=== PATIENT | female | born 1970 | race Caucasian/White ===

== ENCOUNTER 2016-09-06 11:05 | Emergency (ER) | payer OTHER ==
[2016-09-06] MEDS ORDERED: ANEXSIA, NORCO 7.5MG/325MG TABLET(HYDROCODONE/APAP) As Ordered ONE (12:13)
[2016-09-06] MEDS ORDERED: NORCO, ANEXSIA 5/325MG TABLET (HYDROcodone/ACETAMINOPHEN) As Ordered ONE (12:15)
--- NOTE | 2016-09-06 12:34 | REP ---
Clinical: Fall . Technique: Internal rotation, external rotation, and Y view right shoulder. Findings: No acute fracture or dislocation. The acromioclavicular and glenohumeral joints are intact. No periarticular calcifications or significant degenerative changes are appreciated. Sub acromial space is normal. Surrounding soft tissues are unremarkable. Impression: No acute fracture or dislocation. Signed by Duong Bruno MD 09/06/2016 12:25 P
--- NOTE | 2016-09-06 12:35 | REP ---
Clinical: Trauma/fall. Technique: AP, lateral, bilateral oblique and sunrise views left knee. Findings: The osseous structures and joint spaces are intact and normal. There is no evidence for acute fracture or dislocation. No joint effusion is appreciated. Surrounding soft tissues are unremarkable. No subcutaneous emphysema or radiodense foreign body. Impression: No acute fracture or dislocation. Signed by Duong Bruno MD 09/06/2016 12:27 P
--- NOTE | 2016-09-06 12:41 | REP ---
Clinical: Trauma. Fall. Technique: AP, lateral, bilateral oblique views of the right hand. Findings: Irregularity involving the fifth digit distal phalanx suggests old injury. However, subtle acute injury cannot be excluded. The remainder of the examination appears normal for age and no further acute fracture or dislocation is identified or suggested. No subcutaneous emphysema. No foreign body. Impression: Likely old injury involving the fifth distal phalanx. No further acute fracture or dislocation identified or suggested. Signed by Duong Bruno MD 09/06/2016 12:32 P
[2016-09-06] MEDS ORDERED: diphenhydrAMINE INJ 50MG/ML VIAL (J1200) As Ordered ONE (13:29)
[2016-09-06] MEDS ORDERED: METOCLOPRAMIDE INJ 10MG/2ML VIAL (J2765) As Ordered ONE (13:29)
[2016-09-06] MEDS ORDERED: KETOROLAC 30 MG/ML VIAL (J1885) As Ordered ONE (13:29)
--- NOTE | 2016-09-06 15:09 | REP ---
Clinical: Headache . Comparison: 06/30/2015 . Findings: The ventricles, sulci, and cisterns are normal in position and appearance. Becker-white differentiation is maintained. No acute intracranial hemorrhage, mass/mass effect, pathology or trauma/injury. No evidence for acute infarction. No extra-axial fluid collection. Calvarium is intact. Paranasal sinuses and mastoid air cells are clear. Impression: Normal noncontrast head CT. No evidence for acute intracranial pathology or trauma/injury. Signed by Duong Bruno MD 09/06/2016 03:00 P
--- NOTE | 2016-09-06 15:48 | EDDOCDS ---
Physician Documentation [facility] Name: Wendi Go Age: 45 yrs Sex: Female : 1970 Arrival Date: 09/06/2016 Time: 11:05 Bed TR8 Private MD: [facility] [place] [facility] [place] Disposition: 09/06/16 15:11 Discharged to Home/Self Care. Impression: Fall (on) (from) other stairs and steps, Headache. - Condition is Stable. - Prescriptions for Naprosyn 500 mg Oral Tablet - take 1 tablet by ORAL route 2 times per day take with food; 20 tablet. Percocet 5- 325 mg Oral Tablet - take 1 tablet by ORAL route every 6 hours As needed MDD: 4 tabs; 4 tablet. - Medication Reconciliation, Local Pharmacy Hours form. - Follow up: [facility] [place] [facility]; When: 1 week; Reason: Recheck today's complaints. - Problem is new. - Symptoms have improved. - Notes: You were evaluated in the emergency department for a mechanical fall and headache. The x-rays obtained on your right shoulder, right hand, and left knee reported no acute fractures. The CT obtained of your head reported no acute pathology. You were given anti-inflammatories and pain medication while in the ED. At time of discharge you were prescribed an anti-inflammatory and pain medication. Please follow-up with the [facility] in 1 week. Historical: - Allergies: Bees (Swelling); PENICILLINS (Unknown); - Home Meds: 1. Ambien CR 12.5 mg Oral TbMP 1 tab once daily 2. Fioricet Oral as needed h/a 3. Lopressor 50 mg Oral tab 1 tab 2 times per day 4. Zyrtec 10 mg Oral tab 1 tab once daily - PMHx: Anxiety; Hypertension; - PSHx: Hysterectomy; Breast Reduction; Adenoidectomy; Tonsillectomy; wisdom tooth extraction; - Social history: Smoking status: Patient states was never smoker of tobacco. No barriers to communication noted, The patient speaks fluent Divehi, Speaks appropriately for age. - Family history: Not pertinent. - : The pt / caregiver states he / she is not on anticoagulants. Home medication list is obtained from the patient. - Exposure Risk Screening:: None identified. Vital Signs: 09/06 11:07 BP 165 / 109; Pulse 76; Resp 18; Temp 96.0; Pulse Ox 98% ; Weight 84.82 kg / 187 lbs; elp Height 5 ft. 5 in. (165.10 cm); Pain 7/10; 13:05 BP 145 / 115; Pulse 69; Resp 18; Pulse Ox 96% ; Pain 6/10; hs1 15:46 BP 145 / 92; Pulse 67; Resp 18; Temp 98(T); Pulse Ox 99% on R/A; Pain 2/10; rs3 11:07 Body Mass Index 31.12 (84.82 kg, 165.10 cm) elp MDM: 12:05 HYDROcodone-acetaminophen 5 mg-325 mg 1 tabs PO once ordered. jo4 12:06 Hand, Complete Ordered. EDMS 12:06 Knee, Complete Ordered. EDMS 12:06 Shoulder, Complete Ordered. EDMS 12:49 ED course: 45 yo female presents with mild mechanical fall struck head but no LOC no sd1 N/V no neuro complaints no neck pain c/o pain right shoulder right hand left knee no syncope pt slipped - mechanical fall exam tender right shoulder left knee right hand no deformity neuro vasc intact evaluate injuries. 13:10 Hand, Complete Reviewed. jo4 13:10 Knee, Complete Reviewed. jo4 13:10 Shoulder, Complete Reviewed. jo4 13:20 ketorolac 60 mg IM once ordered. jo4 13:20 diphenhydrAMINE 25 mg IM once ordered. jo4 13:20 Metoclopramide 10 mg IM once ordered. jo4 13:48 [facility] Payment Agreement was scanned into [employer] and attached to record. jp5 13:48 Financial registration complete. jp5 14:51 CT Head Without Contrast Ordered. EDMS Administered Medications: 12:25 Drug: HYDROcodone-acetaminophen 1 tabs [hydrocodone 5 mg-acetaminophen 325 mg tablet (1 hs1 tabs)] Route: PO; 13:05 Follow up: BP 145 / 115; Pulse 69 bpm; Resp 18 bpm; Pulse Ox 96% ; Pain 6/10 Adult; hs1 Response: Pain is decreased 13:33 Drug: Metoclopramide 10 mg [metoclopramide 5 mg/mL injection solution (2 mL)] Route: pml IM; Site: left gluteus; 13:34 Drug: ketorolac 60 mg [ketorolac 30 mg/mL (1 mL) injection solution (2 mL)] Route: IM; pml Site: right gluteus; 13:34 Drug: diphenhydrAMINE 25 mg [diphenhydramine 50 mg/mL injection solution (0.5 mL)] pml Route: IM; Site: left gluteus; Signatures: Dispatcher [employer] Rebecca Farias MD MD sd1 Jay Javier RN RN mlb1 Nusrat Chapman RN RN rs3 Romario Fuentes jp5 Cori Toro DO DO jo4 Dafne Bray RN hs1 Caro Puentes RN pml The chart was reviewed and I authenticate all verbal orders and agree with the evaluation and treatment provided.Attachments: 13:48 [facility] Payment Agreement jp5 MTDD
--- NOTE | 2016-09-06 15:48 | EDDOCDS ---
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 Adult Sepsis Screening: The patient does not have new or worsening altered mentation. Patient's respiratory rate is less than 22. Systolic blood pressure is greater than 100. Patient has a qSOFA score of 0- Negative Sepsis Screen. Suicide/Homicide risk assessment- the patient denies having any suicidal and/or homicidal ideations and does not present with any other emotional, behavioral or mental health complaints. Status: Patient is not a director of community services or dependent. Transition of care: patient was not received from another setting of care. 11:12 Acuity: YAMILET Level 4 mlb1 11:12 Method Of Arrival: Walkin/Carried/Asstd mlb1 Triage Assessment: 11:15 General: Appears in no apparent distress, Behavior is appropriate for age, cooperative. mlb1 Pain: Location: right shoulder, right hand left knee head Pain currently is 7 out of 10 on a pain scale. Pt Declines HIV testing. Neurological: Level of Consciousness is awake, alert, Oriented to person, place, time. Historical: - Allergies: Bees (Swelling); PENICILLINS (Unknown); - Home Meds: 1. Ambien CR 12.5 mg Oral TbMP 1 tab once daily 2. Fioricet Oral as needed h/a 3. Lopressor 50 mg Oral tab 1 tab 2 times per day 4. Zyrtec 10 mg Oral tab 1 tab once daily - PMHx: Anxiety; Hypertension; - PSHx: Hysterectomy; Breast Reduction; Adenoidectomy; Tonsillectomy; wisdom tooth extraction; - Social history: Smoking status: Patient states was never smoker of tobacco. No barriers to communication noted, The patient speaks fluent Kosovan, Speaks appropriately for age. - Family history: Not pertinent. - : The pt / caregiver states he / she is not on anticoagulants. Home medication list is obtained from the patient. - Exposure Risk Screening:: None identified. Screenin:46 Screening information is obtained from the patient. Fall risk: No risks identified. hs1 Assistance ADL's: requires no assistance with activities of daily living. Abuse/DV Screen: The patient / caregiver reports he/she is: not in a situation that causes fear, pain or injury. Nutritional screening: No deficits noted. Advance Directives: There is no active DNR order. home support is adequate. Assessment: 11:45 General: Appears in no apparent distress, Behavior is appropriate for age, cooperative. hs1 Pain: Location: right hand, right arm and left knee Pain currently is 7 out of 10 on a pain scale. Quality of pain is described as aching. Cardiovascular: No deficits noted. Respiratory: No deficits noted. Derm: Bruising that is bright red, on right hand. Musculoskeletal: Range of motion limited in right shoulder, MCP of right index finger, MCP of right middle finger, MCP of right ring finger and MCP of right little finger. 12:35 Reassessment: Patient appears in no apparent distress at this time. Patient states hs1 symptoms have not improved. Pt states headache also. Does remember hitting head without LOC. Patient also reports history of high blood pressure. Will reassess after medication. . 13:08 Reassessment: Patient appears in no apparent distress at this time. Patient states pain hs1 mildly decreased however headache still bothering her. Patient photophobic. . 13:34 General: Appears in no apparent distress, Behavior is appropriate for age, cooperative. pml Pain: Location: headache Pain currently is 8 out of 10 on a pain scale. Neurological: Level of Consciousness is awake, alert, Oriented to person, place, time. Cardiovascular: Capillary refill < 3 seconds. Derm: Skin is pink, warm & dry. Vital Signs: 11:07 BP 165 / 109; Pulse 76; Resp 18; Temp 96.0; Pulse Ox 98% ; Weight 84.82 kg; Height 5 elp ft. 5 in. (165.10 cm); Pain 7/10; 13:05 BP 145 / 115; Pulse 69; Resp 18; Pulse Ox 96% ; Pain 6/10; hs1 15:46 BP 145 / 92; Pulse 67; Resp 18; Temp 98(T); Pulse Ox 99% on R/A; Pain 2/10; rs3 11:07 Body Mass Index 31.12 (84.82 kg, 165.10 cm) [facility] Vitals: 11:07 Log In Time: September 06, 2016 at 10:05. p ED Course: 11:06 Patient visited by Melinda Ontiveros PCA. elp 11:06 Patient moved to Waiting elp 11:07 DYLAN Hunt is Private Physician. elp 11:07 Patient visited by Melinda Ontiveros PCA. elp 11:07 Patient moved to Pre RCE elp 11:12 Patient visited by Jay Javier, NARCISO. mlb1 11:14 Triage Initiated mlb1 11:16 Patient visited by Jay Javier, NARCISO. mlb1 11:20 Dafne Bray, NARCISO is Primary Nurse. sd1 11:20 [facility] jo4 11:20 Rebecca Millan MD is Attending Physician. jo4 11:20 Patient moved to 14 sd1 11:25 Patient visited by Rebecca Millan MD. sd1 11:58 Patient visited by Dafne Bray RN. hs1 12:55 Shoulder, Complete Returned. EDMS 12:55 Knee, Complete Returned. EDMS 12:55 Hand, Complete Returned. EDMS 13:03 Patient visited by Dafne Bray RN. hs1 13:35 Patient visited by Caro Puentes,NARCISO. pml 13:48 [facility] Payment Agreement was scanned into [employer] and attached to record. jp5 14:47 DYLAN Hunt is Referral Physician. jo4 15:11 [facility] is Referral Physician. jo4 15:46 Patient moved to TR8 rs3 15:47 The patient / caregiver is instructed regarding the plan of care and ED course. rs3 15:47 No IV's were initiated during this patient's visit. No procedures done that require rs3 assistance. Administered Medications: 12:25 Drug: HYDROcodone-acetaminophen 1 tabs [hydrocodone 5 mg-acetaminophen 325 mg tablet (1 hs1 tabs)] Route: PO; 13:05 Follow up: BP 145 / 115; Pulse 69 bpm; Resp 18 bpm; Pulse Ox 96% ; Pain 6/10 Adult; hs1 Response: Pain is decreased 13:33 Drug: Metoclopramide 10 mg [metoclopramide 5 mg/mL injection solution (2 mL)] Route: pml IM; Site: left gluteus; 13:34 Drug: ketorolac 60 mg [ketorolac 30 mg/mL (1 mL) injection solution (2 mL)] Route: IM; pml Site: right gluteus; 13:34 Drug: diphenhydrAMINE 25 mg [diphenhydramine 50 mg/mL injection solution (0.5 mL)] pml Route: IM; Site: left gluteus; Order Results: Radiology Order: Hand, Complete Test: Hand, Complete REASON FOR EXAMINATION: Mechanical fall; Clinical: Trauma. Fall.; ; Technique: AP, lateral, bilateral oblique views of the right hand.; ; Findings:; Irregularity involving the fifth digit distal phalanx suggests old injury.; However, subtle acute injury cannot be excluded. The remainder of the; examination appears normal for age and no further acute fracture or dislocation; is identified or suggested. No subcutaneous emphysema. No foreign body.; ; Impression:; Likely old injury involving the fifth distal phalanx.; No further acute fracture or dislocation identified or suggested.; ; ; Signed by; Duong Bruno MD 09/06/2016 12:32 P; Radiology Order: Knee, Complete Test: Knee, Complete REASON FOR EXAMINATION: Mechanical fall; Clinical: Trauma/fall.; ; Technique: AP, lateral, bilateral oblique and sunrise views left knee.; ; Findings: The osseous structures and joint spaces are intact and normal. There; is no evidence for acute fracture or dislocation. No joint effusion is; appreciated. Surrounding soft tissues are unremarkable. No subcutaneous; emphysema or radiodense foreign body.; ; Impression:; No acute fracture or dislocation.; ; ; Signed by; Duong Bruno MD 09/06/2016 12:27 P; Radiology Order: Shoulder, Complete Test: Shoulder, Complete REASON FOR EXAMINATION: Mechanical fall; Clinical: Fall .; ; Technique: Internal rotation, external rotation, and Y view right shoulder.; ; Findings:; No acute fracture or dislocation. The acromioclavicular and glenohumeral joints; are intact. No periarticular calcifications or significant degenerative changes; are appreciated. Sub acromial space is normal. Surrounding soft tissues are; unremarkable.; ; Impression:; No acute fracture or dislocation.; ; ; Signed by; Duong Bruno MD 09/06/2016 12:25 P; Outcome: 14:48 Discharge ordered by Provider. jo4 15:11 Discharge ordered by Provider. jo4 15:46 Discharge Assessment: patient administered narcotics - no. The following High Risk rs3 Discharge criteria are identified: None. Discharged to home with family. Condition: stable. Discharge instructions given to patient, Instructed on discharge instructions, follow up and referral plans. medication usage, Demonstrated understanding of instructions, medications, Pt was receptive of discharge instructions/ teaching. Prescriptions given X 2. CT Study completed. Property :Personal belongings accompany Pt. 15:47 Patient left the ED. rs3 Signatures: Dispatcher [employer] EDMS Rebecca Millan MD MD sd1 Jay Javier RN RN mlb1 Nusrat Chapman RN RN rs3 Dafne Bray RN RN hs1 Caro PuentesRN RN Melinda Valentin, [employer] Romario Garay jp5 Cori Toro DO DO jo4 ALIREZA
--- NOTE | 2016-09-08 16:48 | EDDOCDS ---
Nurse's Notes [facility] Name: Wendi Go Age: 45 yrs Sex: Female : 1970 Arrival Date: 09/06/2016 Time: 11:05 Bed TR8 Private MD: NU Hunt Diagnosis: Fall (on) (from) other stairs and steps;Headache Presentation: 09/06 11:12 Presenting complaint: Patient states: Fell down 5 steps injuring right shoulder, hand, mlb1 fingers left knee and hit head 2 hours [employer]. Adult Sepsis Screening: The patient does not have new or worsening altered mentation. Patient's respiratory rate is less than 22. Systolic blood pressure is greater than 100. Patient has a qSOFA score of 0- Negative Sepsis Screen. Suicide/Homicide risk assessment- the patient denies having any suicidal and/or homicidal ideations and does not present with any other emotional, behavioral or mental health complaints. Status: Patient is not a financial services counselor or dependent. Transition of care: patient was not received from another setting of care. 11:12 Acuity: YAMILET Level 4 mlb1 11:12 Method Of Arrival: Walkin/Carried/Asstd mlb1 Triage Assessment: 11:15 General: Appears in no apparent distress, Behavior is appropriate for age, cooperative. mlb1 Pain: Location: right shoulder, right hand left knee head Pain currently is 7 out of 10 on a pain scale. Pt Declines HIV testing. Neurological: Level of Consciousness is awake, alert, Oriented to person, place, time. Historical: - Allergies: Bees (Swelling); PENICILLINS (Unknown); - Home Meds: 1. Ambien CR 12.5 mg Oral TbMP 1 tab once daily 2. Fioricet Oral as needed h/a 3. Lopressor 50 mg Oral tab 1 tab 2 times per day 4. Zyrtec 10 mg Oral tab 1 tab once daily - PMHx: Anxiety; Hypertension; - PSHx: Hysterectomy; Breast Reduction; Adenoidectomy; Tonsillectomy; wisdom tooth extraction; - Social history: Smoking status: Patient states was never smoker of tobacco. No barriers to communication noted, The patient speaks fluent Somali, Speaks appropriately for age. - Family history: Not pertinent. - : The pt / caregiver states he / she is not on anticoagulants. Home medication list is obtained from the patient. - Exposure Risk Screening:: None identified. Screenin:46 Screening information is obtained from the patient. Fall risk: No risks identified. hs1 Assistance ADL's: requires no assistance with activities of daily living. Abuse/DV Screen: The patient / caregiver reports he/she is: not in a situation that causes fear, pain or injury. Nutritional screening: No deficits noted. Advance Directives: There is no active DNR order. home support is adequate. Assessment: 11:45 General: Appears in no apparent distress, Behavior is appropriate for age, cooperative. hs1 Pain: Location: right hand, right arm and left knee Pain currently is 7 out of 10 on a pain scale. Quality of pain is described as aching. Cardiovascular: No deficits noted. Respiratory: No deficits noted. Derm: Bruising that is bright red, on right hand. Musculoskeletal: Range of motion limited in right shoulder, MCP of right index finger, MCP of right middle finger, MCP of right ring finger and MCP of right little finger. 12:35 Reassessment: Patient appears in no apparent distress at this time. Patient states hs1 symptoms have not improved. Pt states headache also. Does remember hitting head without LOC. Patient also reports history of high blood pressure. Will reassess after medication. . 13:08 Reassessment: Patient appears in no apparent distress at this time. Patient states pain hs1 mildly decreased however headache still bothering her. Patient photophobic. . 13:34 General: Appears in no apparent distress, Behavior is appropriate for age, cooperative. pml Pain: Location: headache Pain currently is 8 out of 10 on a pain scale. Neurological: Level of Consciousness is awake, alert, Oriented to person, place, time. Cardiovascular: Capillary refill < 3 seconds. Derm: Skin is pink, warm & dry. Vital Signs: 11:07 BP 165 / 109; Pulse 76; Resp 18; Temp 96.0; Pulse Ox 98% ; Weight 84.82 kg; Height 5 elp ft. 5 in. (165.10 cm); Pain 7/10; 13:05 BP 145 / 115; Pulse 69; Resp 18; Pulse Ox 96% ; Pain 6/10; hs1 15:46 BP 145 / 92; Pulse 67; Resp 18; Temp 98(T); Pulse Ox 99% on R/A; Pain 2/10; rs3 11:07 Body Mass Index 31.12 (84.82 kg, 165.10 cm) [facility] Vitals: 11:07 Log In Time: September 06, 2016 at 10:05. [facility] ED Course: 11:06 Patient visited by Melinda Ontiveros PCA. elp 11:06 Patient moved to Waiting elp 11:07 DYLAN Hunt is Private Physician. elp 11:07 Patient visited by Melinda Ontiveros PCA. elp 11:07 Patient moved to Pre RCE elp 11:12 Patient visited by Jay Javier, RN. mlb1 11:14 Triage Initiated mlb1 11:16 Patient visited by Jay Javier, NARCISO. mlb1 11:20 Dafne Bray, NARCISO is Primary Nurse. sd1 11:20 [facility] DO [facility]. jo4 11:20 Rebecca Millan MD is Attending Physician. jo4 11:20 Patient moved to 14 sd1 11:25 Patient visited by Rebecca Millan MD. sd1 11:58 Patient visited by Dafne Bray RN. hs1 12:55 Shoulder, Complete Returned. EDMS 12:55 Knee, Complete Returned. EDMS 12:55 Hand, Complete Returned. EDMS 13:03 Patient visited by Dafne Bray RN. hs1 13:35 Patient visited by Caro Puentes,NARCISO. pml 13:48 [facility] Payment Agreement was scanned into [employer] and attached to record. jp5 14:47 NU Hunt is Referral Physician. jo4 15:11 [facility] [place] [place] is Referral Physician. jo4 15:46 Patient moved to TR8 rs3 15:47 The patient / caregiver is instructed regarding the plan of care and ED course. rs3 15:47 No IV's were initiated during this patient's visit. No procedures done that require rs3 assistance. 15:53 CT Head Without Contrast Returned. EDMS 20:31 T-Sheet-- Draft Copy was scanned into [employer] and attached to record. klr Administered Medications: 12:25 Drug: HYDROcodone-acetaminophen 1 tabs [hydrocodone 5 mg-acetaminophen 325 mg tablet (1 hs1 tabs)] Route: PO; 13:05 Follow up: BP 145 / 115; Pulse 69 bpm; Resp 18 bpm; Pulse Ox 96% ; Pain 6/10 Adult; hs1 Response: Pain is decreased 13:33 Drug: Metoclopramide 10 mg [metoclopramide 5 mg/mL injection solution (2 mL)] Route: pml IM; Site: left gluteus; 13:34 Drug: ketorolac 60 mg [ketorolac 30 mg/mL (1 mL) injection solution (2 mL)] Route: IM; pml Site: right gluteus; 13:34 Drug: diphenhydrAMINE 25 mg [diphenhydramine 50 mg/mL injection solution (0.5 mL)] pml Route: IM; Site: left gluteus; Order Results: Radiology Order: Hand, Complete Test: Hand, Complete REASON FOR EXAMINATION: Mechanical fall; Clinical: Trauma. Fall.; ; Technique: AP, lateral, bilateral oblique views of the right hand.; ; Findings:; Irregularity involving the fifth digit distal phalanx suggests old injury.; However, subtle acute injury cannot be excluded. The remainder of the; examination appears normal for age and no further acute fracture or dislocation; is identified or suggested. No subcutaneous emphysema. No foreign body.; ; Impression:; Likely old injury involving the fifth distal phalanx.; No further acute fracture or dislocation identified or suggested.; ; ; Signed by; Duong Bruno MD 09/06/2016 12:32 P; Radiology Order: Knee, Complete Test: Knee, Complete REASON FOR EXAMINATION: Mechanical fall; Clinical: Trauma/fall.; ; Technique: AP, lateral, bilateral oblique and sunrise views left knee.; ; Findings: The osseous structures and joint spaces are intact and normal. There; is no evidence for acute fracture or dislocation. No joint effusion is; appreciated. Surrounding soft tissues are unremarkable. No subcutaneous; emphysema or radiodense foreign body.; ; Impression:; No acute fracture or dislocation.; ; ; Signed by; Duong Bruno MD 09/06/2016 12:27 P; Radiology Order: Shoulder, Complete Test: Shoulder, Complete REASON FOR EXAMINATION: Mechanical fall; Clinical: Fall .; ; Technique: Internal rotation, external rotation, and Y view right shoulder.; ; Findings:; No acute fracture or dislocation. The acromioclavicular and glenohumeral joints; are intact. No periarticular calcifications or significant degenerative changes; are appreciated. Sub acromial space is normal. Surrounding soft tissues are; unremarkable.; ; Impression:; No acute fracture or dislocation.; ; ; Signed by; Duong Bruno MD 09/06/2016 12:25 P; Radiology Order: CT Head Without Contrast Test: CT Head Without Contrast REASON FOR EXAMINATION: Headache; Clinical: Headache .; ; Comparison: 06/30/2015 .; ; Findings:; The ventricles, sulci, and cisterns are normal in position and appearance.; Becker-white differentiation is maintained. No acute intracranial hemorrhage,; mass/mass effect, pathology or trauma/injury. No evidence for acute infarction.; No extra-axial fluid collection. Calvarium is intact. Paranasal sinuses and; mastoid air cells are clear.; ; Impression:; Normal noncontrast head CT.; No evidence for acute intracranial pathology or trauma/injury.; ; ; Signed by; Duong Bruno MD 09/06/2016 03:00 P; Outcome: 14:48 Discharge ordered by Provider. jo4 15:11 Discharge ordered by Provider. jo4 15:46 Discharge Assessment: patient administered narcotics - no. The following High Risk rs3 Discharge criteria are identified: None. Discharged to home with family. Condition: stable. Discharge instructions given to patient, Instructed on discharge instructions, follow up and referral plans. medication usage, Demonstrated understanding of instructions, medications, Pt was receptive of discharge instructions/ teaching. Prescriptions given X 2. CT Study completed. Property :Personal belongings accompany Pt. 15:47 Patient left the ED. rs3 Signatures: Dispatcher [employer] EDMS Rebecca Millan MD MD sd1 Jay Javier RN RN mlb1 Nusrat ChapmanRN RN rs3 Dafne Bray RN RN hs1 Caro Puentes RN RN Melinda Valentin, [employer] Romario Garay Jane, DO DO jo4 Haylee Cha Chart Complete MTDD
--- NOTE | 2016-09-08 16:48 | EDDOCDS ---
Physician Documentation [facility] Name: Wendi Go Age: 45 yrs Sex: Female : 1970 Arrival Date: 09/06/2016 Time: 11:05 Bed TR8 Private MD: [facility] Disposition: 09/06/16 15:11 Discharged to Home/Self Care. Impression: Fall (on) (from) other stairs and steps, Headache. - Condition is Stable. - Prescriptions for Naprosyn 500 mg Oral Tablet - take 1 tablet by ORAL route 2 times per day take with food; 20 tablet. Percocet 5- 325 mg Oral Tablet - take 1 tablet by ORAL route every 6 hours As needed MDD: 4 tabs; 4 tablet. - Medication Reconciliation, Local Pharmacy Hours form. - Follow up: [facility]; When: 1 week; Reason: Recheck today's complaints. - Problem is new. - Symptoms have improved. - Notes: You were evaluated in the emergency department for a mechanical fall and headache. The x-rays obtained on your right shoulder, right hand, and left knee reported no acute fractures. The CT obtained of your head reported no acute pathology. You were given anti-inflammatories and pain medication while in the ED. At time of discharge you were prescribed an anti-inflammatory and pain medication. Please follow-up with the [facility] in 1 week. Historical: - Allergies: Bees (Swelling); PENICILLINS (Unknown); - Home Meds: 1. Ambien CR 12.5 mg Oral TbMP 1 tab once daily 2. Fioricet Oral as needed h/a 3. Lopressor 50 mg Oral tab 1 tab 2 times per day 4. Zyrtec 10 mg Oral tab 1 tab once daily - PMHx: Anxiety; Hypertension; - PSHx: Hysterectomy; Breast Reduction; Adenoidectomy; Tonsillectomy; wisdom tooth extraction; - Social history: Smoking status: Patient states was never smoker of tobacco. No barriers to communication noted, The patient speaks fluent Bulgarian, Speaks appropriately for age. - Family history: Not pertinent. - : The pt / caregiver states he / she is not on anticoagulants. Home medication list is obtained from the patient. - Exposure Risk Screening:: None identified. Vital Signs: 09/06 11:07 BP 165 / 109; Pulse 76; Resp 18; Temp 96.0; Pulse Ox 98% ; Weight 84.82 kg / 187 lbs; elp Height 5 ft. 5 in. (165.10 cm); Pain 7/10; 13:05 BP 145 / 115; Pulse 69; Resp 18; Pulse Ox 96% ; Pain 6/10; hs1 15:46 BP 145 / 92; Pulse 67; Resp 18; Temp 98(T); Pulse Ox 99% on R/A; Pain 2/10; rs3 11:07 Body Mass Index 31.12 (84.82 kg, 165.10 cm) elp MDM: 12:05 HYDROcodone-acetaminophen 5 mg-325 mg 1 tabs PO once ordered. jo4 12:06 Hand, Complete Ordered. EDMS 12:06 Knee, Complete Ordered. EDMS 12:06 Shoulder, Complete Ordered. EDMS 12:49 ED course: 45 yo female presents with mild mechanical fall struck head but no LOC no sd1 N/V no neuro complaints no neck pain c/o pain right shoulder right hand left knee no syncope pt slipped - mechanical fall exam tender right shoulder left knee right hand no deformity neuro vasc intact evaluate injuries. 13:10 Hand, Complete Reviewed. jo4 13:10 Knee, Complete Reviewed. jo4 13:10 Shoulder, Complete Reviewed. jo4 13:20 ketorolac 60 mg IM once ordered. jo4 13:20 diphenhydrAMINE 25 mg IM once ordered. jo4 13:20 Metoclopramide 10 mg IM once ordered. jo4 13:48 [facility] Payment Agreement was scanned into [employer] and attached to record. jp5 13:48 Financial registration complete. jp5 14:51 CT Head Without Contrast Ordered. EDMS 20:31 T-Sheet-- Draft Copy was scanned into [employer] and attached to record. klr Administered Medications: 12:25 Drug: HYDROcodone-acetaminophen 1 tabs [hydrocodone 5 mg-acetaminophen 325 mg tablet (1 hs1 tabs)] Route: PO; 13:05 Follow up: BP 145 / 115; Pulse 69 bpm; Resp 18 bpm; Pulse Ox 96% ; Pain 6/10 Adult; hs1 Response: Pain is decreased 13:33 Drug: Metoclopramide 10 mg [metoclopramide 5 mg/mL injection solution (2 mL)] Route: pml IM; Site: left gluteus; 13:34 Drug: ketorolac 60 mg [ketorolac 30 mg/mL (1 mL) injection solution (2 mL)] Route: IM; pml Site: right gluteus; 13:34 Drug: diphenhydrAMINE 25 mg [diphenhydramine 50 mg/mL injection solution (0.5 mL)] pml Route: IM; Site: left gluteus; Signatures: Dispatcher [employer] EDRebecca Griffin MD MD sd1 Jay Javier RN RN mlb1 Nusrat Chapman RN RN rs3 Romario Fuentes jp5 Cori Toro DO DO jo4 Haylee Cha Hannah RN hs1 Caro Puentes RN pml The chart was reviewed and I authenticate all verbal orders and agree with the evaluation and treatment provided.Attachments: 13:48 [facility] Payment Agreement jp5 20:31 T-Sheet-- Draft Copy klr Chart Complete MTDD
--- NOTE | 2016-09-08 16:48 | EDDOCDS ---
Physician Documentation [facility] Name: Wendi Go Age: 45 yrs Sex: Female : 1970 Arrival Date: 09/06/2016 Time: 11:05 Bed TR8 Private MD: [facility] [place] Disposition: 09/06/16 15:11 Discharged to Home/Self Care. Impression: Fall (on) (from) other stairs and steps, Headache. - Condition is Stable. - Prescriptions for Naprosyn 500 mg Oral Tablet - take 1 tablet by ORAL route 2 times per day take with food; 20 tablet. Percocet 5- 325 mg Oral Tablet - take 1 tablet by ORAL route every 6 hours As needed MDD: 4 tabs; 4 tablet. - Medication Reconciliation, Local Pharmacy Hours form. - Follow up: [facility]; When: 1 week; Reason: Recheck today's complaints. - Problem is new. - Symptoms have improved. - Notes: You were evaluated in the emergency department for a mechanical fall and headache. The x-rays obtained on your right shoulder, right hand, and left knee reported no acute fractures. The CT obtained of your head reported no acute pathology. You were given anti-inflammatories and pain medication while in the ED. At time of discharge you were prescribed an anti-inflammatory and pain medication. Please follow-up with the [facility] in 1 week. Historical: - Allergies: Bees (Swelling); PENICILLINS (Unknown); - Home Meds: 1. Ambien CR 12.5 mg Oral TbMP 1 tab once daily 2. Fioricet Oral as needed h/a 3. Lopressor 50 mg Oral tab 1 tab 2 times per day 4. Zyrtec 10 mg Oral tab 1 tab once daily - PMHx: Anxiety; Hypertension; - PSHx: Hysterectomy; Breast Reduction; Adenoidectomy; Tonsillectomy; wisdom tooth extraction; - Social history: Smoking status: Patient states was never smoker of tobacco. No barriers to communication noted, The patient speaks fluent Turkish, Speaks appropriately for age. - Family history: Not pertinent. - : The pt / caregiver states he / she is not on anticoagulants. Home medication list is obtained from the patient. - Exposure Risk Screening:: None identified. Vital Signs: 09/06 11:07 BP 165 / 109; Pulse 76; Resp 18; Temp 96.0; Pulse Ox 98% ; Weight 84.82 kg / 187 lbs; elp Height 5 ft. 5 in. (165.10 cm); Pain 7/10; 13:05 BP 145 / 115; Pulse 69; Resp 18; Pulse Ox 96% ; Pain 6/10; hs1 15:46 BP 145 / 92; Pulse 67; Resp 18; Temp 98(T); Pulse Ox 99% on R/A; Pain 2/10; rs3 11:07 Body Mass Index 31.12 (84.82 kg, 165.10 cm) elp MDM: 12:05 HYDROcodone-acetaminophen 5 mg-325 mg 1 tabs PO once ordered. jo4 12:06 Hand, Complete Ordered. EDMS 12:06 Knee, Complete Ordered. EDMS 12:06 Shoulder, Complete Ordered. EDMS 12:49 ED course: 45 yo female presents with mild mechanical fall struck head but no LOC no sd1 N/V no neuro complaints no neck pain c/o pain right shoulder right hand left knee no syncope pt slipped - mechanical fall exam tender right shoulder left knee right hand no deformity neuro vasc intact evaluate injuries. 13:10 Hand, Complete Reviewed. jo4 13:10 Knee, Complete Reviewed. jo4 13:10 Shoulder, Complete Reviewed. jo4 13:20 ketorolac 60 mg IM once ordered. jo4 13:20 diphenhydrAMINE 25 mg IM once ordered. jo4 13:20 Metoclopramide 10 mg IM once ordered. jo4 13:48 [facility] Payment Agreement was scanned into [employer] and attached to record. jp5 13:48 Financial registration complete. jp5 14:51 CT Head Without Contrast Ordered. EDMS 20:31 T-Sheet-- Draft Copy was scanned into [employer] and attached to record. klr Administered Medications: 12:25 Drug: HYDROcodone-acetaminophen 1 tabs [hydrocodone 5 mg-acetaminophen 325 mg tablet (1 hs1 tabs)] Route: PO; 13:05 Follow up: BP 145 / 115; Pulse 69 bpm; Resp 18 bpm; Pulse Ox 96% ; Pain 6/10 Adult; hs1 Response: Pain is decreased 13:33 Drug: Metoclopramide 10 mg [metoclopramide 5 mg/mL injection solution (2 mL)] Route: pml IM; Site: left gluteus; 13:34 Drug: ketorolac 60 mg [ketorolac 30 mg/mL (1 mL) injection solution (2 mL)] Route: IM; pml Site: right gluteus; 13:34 Drug: diphenhydrAMINE 25 mg [diphenhydramine 50 mg/mL injection solution (0.5 mL)] pml Route: IM; Site: left gluteus; Signatures: Dispatcher [employer] EDRebecca Griffin MD MD sd1 Jay Javier RN RN mlb1 Nusrat Chapman RN RN rs3 Romario Fuentes jp5 Cori Toro DO DO jo4 Haylee Cha Hannah RN hs1 Caro Puentes RN pml The chart was reviewed and I authenticate all verbal orders and agree with the evaluation and treatment provided.Attachments: 13:48 [facility] Payment Agreement jp5 20:31 T-Sheet-- Draft Copy klr Chart Complete MTDD
== END 2016-09-06 15:47 | disposition home or self-care (01) ==
LOC: M ED 11:05
DX: R51 Headache (principal); W18.09XA Striking against other object with subsequent fall, initial encounter; Y92.019 Unspecified place in single-family (private) house as the place of occurrence of the external cause; Y93.89 Activity, other specified; Y99.8 Other external cause status; I10 Essential (primary) hypertension; F41.9 Anxiety disorder, unspecified; Z90.79 Acquired absence of other genital organ(s); Z90.89 Acquired absence of other organs; Z79.899 Other long term (current) drug therapy; Z88.0 Allergy status to penicillin; Z91.030 Bee allergy status
CPT/HCPCS: 70450; 73030; 73130; 73564; 96372; 99284; J1200; J1885; J2765

== ENCOUNTER → 2016-09-22 | Outpatient (CLI) | payer OTHER ==
[~2016-09-22] MED LIST: AMBI12.52 PO; ATOR1TAB19 PO; BUPR15TASR PO; LOPR1TAB6 PO; MULT1TAB10 PO; SING10TA32 PO; VITA100037 PO; WELLTAB38 PO; ZYRT10CA PO
[2016-09-22 20:25] LABS: BASO # 0.1 K/mm3 (0.0-0.2); BASO % 0.9 % (0.0-1.0); EOS # 0.2 K/mm3 (0.0-0.50); EOS % 2.9 % (0.0-3.0); LARGE UNSTAINED CELL # 0.2 K/mm3 (0.0-0.4); LARGE UNSTAINED CELL % 2.4 % (0.0-4.0); LYMPH # 3.2 K/mm3 (1.5-4.5); MEAN CORPUSCULAR HEMOGLOBIN 28.3 pg (27.0-33.0); MEAN CORPUSCULAR HGB CONC 32.3 g/dl (32.0-36.5); MEAN CORPUSCULAR VOLUME 87.7 fl (80.0-96.0); MONO # 0.3 K/mm3 (0.0-0.8); MONO % 4.1 % (0.0-5.0); NEUTROPHILS # 4.3 K/mm3 (1.8-7.7); NEUTROPHILS % 51.8 % (36.0-66.0); PLATELET COUNT, AUTOMATED 296 k/mm3 (150-450); RED CELL DISTRIBUTION WIDTH 12.6 % (11.5-14.5); WHITE BLOOD COUNT 8.4 K/mm3 (4.0-10.0)
[2016-09-22 20:48] LABS: ALBUMIN 4.1 GM/DL (3.2-5.2); ALBUMIN/GLOBULIN RATIO 1.21 (1.00-1.93); ALKALINE PHOSPHATASE 89 U/L (45-117); ALT/SGPT 28 U/L (12-78); ANION GAP 9 MEQ/L (8-16); AST/SGOT 18 U/L (15-37); BILIRUBIN,TOTAL 0.7 MG/DL (0.2-1.0); BLOOD UREA NITROGEN 16 MG/DL (7-18); CARBON DIOXIDE LEVEL 28 MEQ/L (21-32); CHLORIDE LEVEL 105 MEQ/L (98-107); CREATININE FOR GFR 0.79 MG/DL (0.55-1.02); GLOMERULAR FILTRATION RATE > 60.0 (>58); GLUCOSE, FASTING 84 MG/DL (70-105); POTASSIUM SERUM 4.3 MEQ/L (3.5-5.1); SODIUM LEVEL 142 MEQ/L (136-145); TOTAL PROTEIN 7.5 GM/DL (6.4-8.2)
== END ==
LOC: M WUC 16:04
PROVIDERS: ATTEND Internal Medicine Rheumatology
DX: M79.1 Myalgia (principal); Z79.899 Other long term (current) drug therapy; R53.83 Other fatigue

== ENCOUNTER → 2016-09-24 | Outpatient (CLI) | payer OTHER ==
[~2016-09-24] VITALS: Ht 165.1 cm; Wt 89.8 kg
[~2016-09-24] MED LIST changes: +LIDOCAINE 2% INJ 100 MG/5 ML SDV (FOR ANES.) As Ordered ONE; +NS 1,000 ML IV SCH; +PROPOFOL 200 MG/20 ML VIAL As Ordered ONE; +fentaNYL 100 MCG/2 ML INJECTION (J3010) As Ordered ONE
--- NOTE | 2016-09-24 10:44 | ROOR ---
Patient Name: Wendi Go Procedure Date: 09/24/2016 10:15 AM Date of : 1970 Age: 45 Room: [facility] Gender: Female Note Status: Finalized Procedure: Upper GI endoscopy + Biopsies Indications: Epigastric abdominal pain, Heartburn Providers: Brian Groves MD Referring MD: FRANKI DOAN MD Requesting Provider: Medicines: Monitored Anesthesia Care Complications: No immediate complications. Procedure: Pre-Anesthesia Assessment: - The heart rate, respiratory rate, oxygen saturations, blood pressure, adequacy of pulmonary ventilation, and response to care were monitored throughout the procedure. The Endoscope was introduced through the mouth, and advanced to the second part of duodenum. The upper GI endoscopy was accomplished without difficulty. The patient tolerated the procedure well. Findings: The Z-line was irregular and was found 40 cm from the incisors. Multiple biopsies were obtained with cold forceps for evaluation to rule out Leon's Esophagus randomly at the gastroesophageal junction. Multiple dispersed, small non-bleeding erosions were found in the gastric antrum. There were no stigmata of recent bleeding. Biopsies were taken with a cold forceps for Helicobacter pylori testing. The exam of the duodenum was otherwise normal. Impression: - Z-line irregular, 40 cm from the incisors. - Non-bleeding erosive gastropathy. Biopsied. - Multiple biopsies were obtained at the gastroesophageal junction. - The examination was otherwise normal. Recommendation: - Patient has a contact number available for emergencies. The signs and symptoms of potential delayed complications were discussed with the patient. Return to normal activities tomorrow. Written discharge instructions were provided to the patient. - High fiber diet. - Discharge patient to home. - Continue present medications. - Await pathology results. - Telephone GI clinic for pathology results in 1 week. - Use Prilosec (omeprazole) 40 mg PO daily. - The findings and recommendations were discussed with the patient's family. Brian Groves MD Brian Groves MD 09/24/2016 10:44:08 AM This report has been signed electronically. Number of Addenda: 0 Note Initiated On: 09/24/2016 10:15 AM Estimated Blood Loss: Estimated blood loss: none.
[2016-09-24 11:00] VITALS: BP 161/97
== END ==
LOC: M OPP 09:27
PROVIDERS: ATTEND Internal Medicine Gastroenterology
DX: R12 Heartburn (principal); K22.8 Other specified diseases of esophagus; K31.89 Other diseases of stomach and duodenum; Z79.899 Other long term (current) drug therapy
CPT/HCPCS: 43239; 88305; 99156; J3010

== ENCOUNTER → 2018-04-01 | Outpatient (REF) | payer OTHER | LOC: M WUC 09:30 | DX: J02.9 Acute pharyngitis, unspecified (principal) ==

== ENCOUNTER → 2019-02-03 | Outpatient (REF) | payer OTHER ==
[~2019-02-03] MED LIST changes: -LIDOCAINE 2% INJ 100 MG/5 ML SDV (FOR ANES.) As Ordered ONE; -NS 1,000 ML IV SCH; -PROPOFOL 200 MG/20 ML VIAL As Ordered ONE; -VITA100037 PO; +VITA100067 PO; -fentaNYL 100 MCG/2 ML INJECTION (J3010) As Ordered ONE
[2019-02-03 20:54] LABS: ALBUMIN 4.1 GM/DL (3.2-5.2); BILIRUBIN,TOTAL 0.6 MG/DL (0.2-1.0); CALCIUM LEVEL 9.2 MG/DL (8.5-10.1); CREATININE FOR GFR 1.16 MG/DL (0.55-1.30); GLOMERULAR FILTRATION RATE 52.6 (>51); MAGNESIUM LEVEL 2.2 MG/DL (1.8-2.4); POTASSIUM SERUM 4.6 MEQ/L (3.5-5.1); THYROID STIMULATING HORMONE 1.18 uIU/ML (0.358-3.740); TOTAL PROTEIN 7.6 GM/DL (6.4-8.2)
== END ==
LOC: M SFHCLERA 16:11
PROVIDERS: ATTEND Physician Assistant
DX: R25.2 Cramp and spasm (principal)
CPT/HCPCS: 80053; 82607; 83735; 84443; G0463

== ENCOUNTER 2019-05-23 09:28 | Emergency (ER) | payer OTHER ==
[~2019-05-23] VITALS: Ht 165.1 cm; Wt 91.6 kg
[2019-05-23] MEDS ORDERED: SIMV20TA2 (09:36)
[2019-05-23] MEDS ORDERED: LOSA100T8 (09:36)
[2019-05-23] MEDS ORDERED: ONDANSETRON 4MG/2ML VIAL (J2405) IV ONE (10:15)
[2019-05-23] MEDS ORDERED: NS 1,000 ML IV ONE (10:15)
[2019-05-23] MEDS ORDERED: KETOROLAC 30 MG/ML VIAL (J1885) IV ONE (10:15)
[2019-05-23 10:24] LABS: BASO % 0.5 % (0.0-1.0); EOS # 0.2 10^3/uL (0.0-0.5); EOS % 2.1 % (0.0-3.0); HEMATOCRIT 39.1 % (36.0-47.0); HEMOGLOBIN 13.1 g/dl (12.0-15.5); LYMPH # 3.1 10^3/uL (1.5-5.0); LYMPH % 40.9 % (24.0-44.0); MEAN CORPUSCULAR HEMOGLOBIN 29.5 pg (27.0-33.0); MEAN CORPUSCULAR HGB CONC 33.5 g/dl (32.0-36.5); MEAN CORPUSCULAR VOLUME 88.1 fl (80.0-96.0); MONO # 0.5 10^3/uL (0.0-0.8); MONO % 7.2 % (0.0-5.0); NEUTROPHILS # 3.6 10^3/uL (1.5-8.5); PLATELET COUNT, AUTOMATED 264 10^3/uL (150-450); RED BLOOD COUNT 4.44 10^6/uL (4.00-5.40); WHITE BLOOD COUNT 7.5 10^3/uL (4.0-10.0)
[2019-05-23 10:53] LABS: ALBUMIN 3.7 GM/DL (3.2-5.2); BILIRUBIN,DIRECT 0.2 MG/DL (0.0-0.2); BILIRUBIN,TOTAL 0.7 MG/DL (0.2-1.0)
[2019-05-23] MEDS ORDERED: MORPHINE 4 MG/ML 1ML VIAL/SYRINGE (J2270) IV ONE (11:30)
[2019-05-23 11:46] VITALS: BP 123/77
[2019-05-23] MEDS ORDERED: DICY10CA13 PO (12:23)
--- NOTE | 2019-05-23 13:00 | REP ---
CT ABDOMEN AND PELVIS WITHOUT CONTRAST: CT abdomen and pelvis is performed without oral or IV contrast. Sagittal and coronal reconstruction images are performed. Visualized lungs bases demonstrate no evidence of acute infiltrate. The liver, gallbladder, spleen, adrenals, pancreas, and kidney are grossly unremarkable. No renal, ureteral, or bladder calculus is seen. There is no hydroureteronephrosis. There is no abdominal aortic aneurysm. There is no adenopathy in the abdomen or pelvis. There is no free air or free fluid. No bowel wall thickening is seen. There is no evidence of appendicitis, with a normal appendix seen. No pelvic mass is seen. There is a small infraumbilical anterior abdominal wall hernia just to the left of midline containing noninflamed fat. I see no other significant finding. IMPRESSION: No evidence of appendicitis. No renal, ureteral or bladder calculus and no hydroureteronephrosis. Small infraumbilical anterior abdominal wall hernia contains noninflamed fat. Electronically Signed by Duke Becker MD 05/23/2019 04:35 P
== END 2019-05-23 12:37 | disposition home or self-care (01) ==
LOC: M ED 09:28
DX: R10.31 Right lower quadrant pain (principal); I10 Essential (primary) hypertension; Z88.0 Allergy status to penicillin; Z91.030 Bee allergy status; Z79.899 Other long term (current) drug therapy; Z90.79 Acquired absence of other genital organ(s)
CPT/HCPCS: 74176; 80047; 80076; 81001; 83690; 85025; 96361; 96374; 96375; 99284; J1885; J2270; J2405

== ENCOUNTER → 2021-05-01 | Outpatient (CLI) | payer OTHER ==
[~2021-05-01] MED LIST changes: +DICY10CA13 PO; +LOSA100T8; +SIMV20TA22
== END ==
LOC: M WHC 13:08
PROVIDERS: ATTEND Obstetrics & Gynecology
DX: Z12.31 Encounter for screening mammogram for malignant neoplasm of breast (principal)

== ENCOUNTER 2022-03-19 06:31 | Day surgery (SDC) | payer OTHER ==
[~2022-03-19] VITALS: Ht 165.1 cm; Wt 97.1 kg
[~2022-03-19 06:31] MED LIST changes: +BIOT1000 PO; +CETI-24; +CO Q10CA PO; +CYCL-707; +FLUTISP; +GABA-283; +KP F1200 PO; +LIDOCAINE 2% 100MG/5ML SDV (FOR ANES.) As Ordered ONE; +MELO7.5T35; +NS 1,000 ML IV ONE; +PARO10TA3; +POTA99CA2 PO; +RIZA10TA58; +VITA100062 PO; +VITA100093 PO; +VITMTA PO; +ZOLP5TAB; +[UNRECOGNIZED DRUG - CODE]; +propofoL 200 MG/20 ML VIAL As Ordered ONE
[2022-03-19] MEDS ORDERED: fentaNYL 100 MCG/2 ML INJECTION As Ordered ONE (07:38)
[2022-03-19 08:05] VITALS: BP 160/93
== END 2022-03-19 08:14 | disposition home or self-care (01) ==
LOC: M OPP 06:31
PROVIDERS: ATTEND Internal Medicine Gastroenterology
DX: K57.30 Diverticulosis of large intestine without perforation or abscess without bleeding (principal); K64.0 First degree hemorrhoids; K21.00 Gastro-esophageal reflux disease with esophagitis, without bleeding; E78.5 Hyperlipidemia, unspecified; I10 Essential (primary) hypertension; F41.9 Anxiety disorder, unspecified; G43.909 Migraine, unspecified, not intractable, without status migrainosus; J45.909 Unspecified asthma, uncomplicated; Z88.0 Allergy status to penicillin; Z88.1 Allergy status to other antibiotic agents; Z91.030 Bee allergy status; Z79.02 Long term (current) use of antithrombotics/antiplatelets; Z79.52 Long term (current) use of systemic steroids; Z79.899 Other long term (current) drug therapy
CPT/HCPCS: 45378; J3010

== ENCOUNTER 2023-03-31 15:09 | Observation (INO) | payer OTHER ==
[~2023-03-31] VITALS: Ht 165.1 cm; Wt 91.5 kg
[~2023-03-31 15:09] MED LIST changes: +DICY-61 PO; -DICY10CA13 PO; +FLUT50SP17; -FLUTISP; -GABA-283; +GABA-284; -LIDOCAINE 2% 100MG/5ML SDV (FOR ANES.) As Ordered ONE; +MONT-5 PO; -NS 1,000 ML IV ONE; -SING10TA32 PO; -ZOLP5TAB; +ZOLP5TAB PO; -propofoL 200 MG/20 ML VIAL As Ordered ONE
[2023-03-31] MEDS ORDERED: TIZA10TA (15:56)
[2023-03-31 16:43] LABS: BASO # 0.1 10^3/uL (0.0-0.2); BASO % 0.6 % (0.0-1.0); EOS # 0.1 10^3/uL (0.0-0.5); EOS % 1.1 % (0.0-3.0); HEMATOCRIT 41.3 % (36.0-47.0); HEMOGLOBIN 13.8 g/dl (12.0-15.5); LYMPH % 36.9 % (24.0-44.0); MEAN CORPUSCULAR HEMOGLOBIN 28.9 pg (27.0-33.0); MEAN CORPUSCULAR HGB CONC 33.4 g/dl (32.0-36.5); MEAN CORPUSCULAR VOLUME 86.4 fl (80.0-96.0); MONO # 0.4 10^3/uL (0.0-0.8); MONO % 5.4 % (2.0-8.0); NEUTROPHILS # 4.5 10^3/uL (1.5-8.5); NEUTROPHILS % 55.6 % (36.0-66.0); PLATELET COUNT, AUTOMATED 342 10^3/uL (150-450); RED BLOOD COUNT 4.78 10^6/uL (4.00-5.40); WHITE BLOOD COUNT 8.1 10^3/uL (4.0-10.0)
[2023-03-31 17:07] LABS: ALBUMIN 4.1 G/DL (3.2-5.2); ALKALINE PHOSPHATASE 101 U/L (46-116); ALT/SGPT 20 U/L (7.0-40); AST/SGOT 13 U/L (<34); BILIRUBIN,DIRECT 0.2 MG/DL (<0.4); BILIRUBIN,TOTAL 0.8 MG/DL (0.3-1.2); BLOOD UREA NITROGEN 15 MG/DL (9-23); CALCIUM LEVEL 9.7 MG/DL (8.5-10.1); CARBON DIOXIDE LEVEL 27 MMOL/L (20-31); CHLORIDE LEVEL 108 MMOL/L (98-107); CREATININE FOR GFR 0.75 MG/DL (0.55-1.30); GLOMERULAR FILTRATION RATE > 60.0 (>51); GLUCOSE, FASTING 135 MG/DL (60-100); POTASSIUM SERUM 4.3 MMOL/L (3.5-5.1); SODIUM LEVEL 145 MMOL/L (136-145); TOTAL PROTEIN 7.1 G/DL (5.7-8.2)
[2023-03-31 19:18] LABS: APPEARANCE, URINE CLEAR (CLEAR); BACTERIA, URINE AUTO 1+ (NEGATIVE); BILIRUBIN, URINE AUTO NEGATIVE (NEGATIVE); BLOOD, URINE BLOOD NEGATIVE (NEGATIVE); COLOR, URINE STRAW (YELLOW); GLUCOSE, URINE (UA) AUTO NEGATIVE (NEGATIVE); KETONE, URINE AUTO NEGATIVE (NEGATIVE); LEUKOCYTE ESTERASE, URINE AUTO NEGATIVE (NEGATIVE); NITRITE, URINE AUTO NEGATIVE (NEGATIVE); PROTEIN, URINE AUTO NEGATIVE (NEGATIVE); RBC, URINE AUTO 0 /HPF (0-3); SPECIFIC GRAVITY URINE AUTO 1.009 (1.002-1.035); SQUAMOUS EPITHELIAL CELL UR AU 0 /HPF (0-6); UROBILINOGEN, URINE AUTO 0.2 mg/dL (0.0-2.0); WBC, URINE AUTO 1 /HPF (0-3)
[2023-03-31] MEDS ORDERED: LABETALOL 100MG/20ML VIAL IV STA (20:01)
[2023-03-31 20:22] LABS: CK-MB VALUE MASS 1.5 NG/ML (<3.6)
[2023-03-31 20:26] LABS: THYROID STIMULATING HORMONE 1.023 uIU/ML (0.55-4.78)
[2023-03-31 20:27] LABS: CPK CREATINE PHOSPHOKINASE 116 U/L (34-145); FREE T4 1.11 NG/DL (0.89-1.76); MAGNESIUM LEVEL 2.1 MG/DL (1.8-2.4); MB/CK RELATIVE INDEX 1.29 (< OR =4)
[2023-03-31] MEDS ORDERED: ACETAMINOPHEN 325 MG TAB PO ONE (20:40)
[2023-03-31] MEDS ORDERED: cloNIDine 0.2 MG TAB PO ONE (20:55)
[2023-03-31] MEDS ORDERED: GABAPENTIN 300 MG CAP PO SCH (21:00)
[2023-03-31] MEDS ORDERED: traZODone 25MG PER 1/2 TABLET PO SCH (21:00)
[2023-03-31] MEDS ORDERED: zolPIDEM TARTRATE 5 MG TAB PO SCH (21:00)
[2023-03-31] MEDS ORDERED: cloNIDine 0.1MG TABLET PO SCH (21:00)
[2023-03-31 22:09] LABS: INR 0.95; PROTHROMBIN TIME 12.9 SECONDS (12.5-14.5)
[2023-03-31 22:10] LABS: PARTIAL THROMBOPLASTIN TIME 28.1 SECONDS (24.8-34.2)
[2023-03-31] MEDS ORDERED: FLON1SPR NARES (22:14)
[2023-03-31] MEDS ORDERED: OMEG10002 PO (22:14)
[2023-03-31] MEDS ORDERED: OXYC-517 PO ×2 (22:14)
[2023-03-31] MEDS ORDERED: LOSA100T8 PO (22:14)
[2023-03-31] MEDS ORDERED: GABA-282 PO ×2 (22:14)
[2023-03-31] MEDS ORDERED: CETI-24 PO (22:14)
[2023-03-31] MEDS ORDERED: BIOT1CAP2 PO (22:14)
[2023-03-31] MEDS ORDERED: TIZA10TA PO (22:14)
[2023-03-31] MEDS ORDERED: CYAN-1 PO (22:14)
[2023-03-31] MEDS ORDERED: COQ1200C PO (22:14)
[2023-03-31] MEDS ORDERED: MIRA1POW3 PO (22:14)
[2023-03-31] MEDS ORDERED: HOME MED LIST COMPLETE! XX SCH (22:20)
[2023-03-31] MEDS ORDERED: ACETAMINOPHEN TAB 650MG DOSE (2X325MG) PO PRN (22:50)
[2023-03-31] MEDS ORDERED: tiZANidine 4 MG TAB PO PRN (22:50)
[2023-04-01] VITALS (20 sets, daily range): BP systolic 133–155; BP diastolic 76–96; TEMP 96.8–97.9; O2SAT 94–99
[2023-04-01] MEDS: **hydrALAZINE HCL** 25 MG TAB PO SCH ×3 (00:25→06:00)
[2023-04-01] MEDS ORDERED: SUMAtriptan SUCCINATE 25 MG TAB PO ONE (05:00)
[2023-04-01 05:48] LABS: ALBUMIN 3.6 G/DL (3.2-5.2); ALKALINE PHOSPHATASE 89 U/L (46-116); ALT/SGPT 18 U/L (7.0-40); AST/SGOT 10 U/L (<34); BLOOD UREA NITROGEN 15 MG/DL (9-23); CALCIUM LEVEL 9.4 MG/DL (8.5-10.1); CARBON DIOXIDE LEVEL 28 MMOL/L (20-31); CHLORIDE LEVEL 106 MMOL/L (98-107); CREATININE FOR GFR 0.69 MG/DL (0.55-1.30); GLOMERULAR FILTRATION RATE > 60.0 (>51); GLUCOSE, FASTING 100 MG/DL (60-100); POTASSIUM SERUM 3.9 MMOL/L (3.5-5.1); SODIUM LEVEL 143 MMOL/L (136-145); TOTAL PROTEIN 6.4 G/DL (5.7-8.2)
[2023-04-01] MEDS ORDERED: SIMVASTATIN 20 MG TAB PO SCH (09:00)
[2023-04-01] MEDS ORDERED: GABAPENTIN 300 MG CAP PO SCH (09:00)
[2023-04-01] MEDS ORDERED: LOSARTAN 50MG TABLET PO SCH (09:00)
[2023-04-01] MEDS: cloNIDine 0.1MG TABLET PO SCH ×3 (09:00→16:28)
[2023-04-01] MEDS ORDERED: hydroCHLOROthiazide 12.5 MG CAPSULE PO SCH (09:00)
[2023-04-01] MEDS ORDERED: ENOXAPARIN 40MG/0.4ML SYRINGE (J1650 PER 10MG) SC SCH (09:00)
[2023-04-01] MEDS ORDERED: IBUPROFEN 600MG TAB PO PRN (12:30)
[2023-04-01] MEDS ORDERED: diphenhydrAMINE 50MG/ML VIAL IM ONE (15:30)
[2023-04-01] MEDS ORDERED: METOCLOPRAMIDE INJ 10MG/2ML VIAL IV ONE (15:30)
[2023-04-01] MEDS ORDERED: AMLO1TAB25 PO ×2 (15:43→16:20)
[2023-04-01] MEDS ORDERED: REGL5TAB2 PO (16:21)
== END 2023-04-01 17:22 | disposition home or self-care (01) ==
LOC: M ED 15:09 → INTOOBSV 20:50 → M ED INP 20:50 → ENRESERV 04-01 01:35 → M PCU 04-01 02:24
PROVIDERS: ADMIT Internal Medicine Nephrology; ATTEND Internal Medicine Nephrology
DX: I16.0 Hypertensive urgency (principal); E78.5 Hyperlipidemia, unspecified; I10 Essential (primary) hypertension; G43.909 Migraine, unspecified, not intractable, without status migrainosus; M50.00 Cervical disc disorder with myelopathy, unspecified cervical region; Z98.890 Other specified postprocedural states; G47.00 Insomnia, unspecified; Z88.0 Allergy status to penicillin; Z91.030 Bee allergy status; Z79.899 Other long term (current) drug therapy; Z82.49 Family history of ischemic heart disease and other diseases of the circulatory system
CPT/HCPCS: 36415; 70450; 80048; 80053; 80076; 81001; 82550; 82553; 83735; 84439; 84443; 84484; 85025; 85610; 85730; 87635; 93005; 93041; 96372; 96374; 99285; J1650; J1920

== ENCOUNTER → 2023-06-04 | Outpatient (CLI) | payer OTHER ==
[~2023-06-04] MED LIST changes: +AMLO1TAB25 PO; +BIOT1CAP2 PO; +CETI-24 PO; +COQ1200C PO; +CYAN-1 PO; +FLON1SPR NARES; +GABA-282 PO; +LOSA100T8 PO; +MIRA1POW3 PO; +OMEG10002 PO; +OXYC-517 PO; +REGL5TAB2 PO; +TIZA10TA; +TIZA10TA PO
== END ==
LOC: M RAD 07:01
PROVIDERS: ATTEND Student in an Organized Health Care Education/Training Program
DX: I10 Essential (primary) hypertension (principal)

== ENCOUNTER → 2023-06-17 | Outpatient (CLI) | payer OTHER | LOC: M CARPUL 09:37 | PROVIDERS: ATTEND Student in an Organized Health Care Education/Training Program | DX: I10 Essential (primary) hypertension (principal) ==

== ENCOUNTER → 2023-10-07 | Outpatient (REF) | payer OTHER ==
[~2023-10-07] MED LIST changes: -FLUT50SP17; +FLUTISP; -MIRA1POW3 PO; +MIRA33506 PO
[2023-10-07 13:41] LABS: BASO % 0.5 % (0.0-1.0); EOS # 0.2 10^3/uL (0.0-0.5); EOS % 3.7 % (0.0-3.0); HEMATOCRIT 38.4 % (36.0-47.0); HEMOGLOBIN 12.8 g/dl (12.0-15.5); LYMPH # 2.8 10^3/uL (1.5-5.0); LYMPH % 43.3 % (24.0-44.0); MEAN CORPUSCULAR HEMOGLOBIN 28.8 pg (27.0-33.0); MEAN CORPUSCULAR HGB CONC 33.3 g/dl (32.0-36.5); MEAN CORPUSCULAR VOLUME 86.5 fl (80.0-96.0); MONO # 0.4 10^3/uL (0.0-0.8); MONO % 6.7 % (2.0-8.0); NEUTROPHILS % 45.5 % (36.0-66.0); PLATELET COUNT, AUTOMATED 276 10^3/uL (150-450); RED BLOOD COUNT 4.44 10^6/uL (4.00-5.40); WHITE BLOOD COUNT 6.5 10^3/uL (4.0-10.0)
[2023-10-07 14:18] LABS: ALBUMIN 3.9 G/DL (3.2-5.2); ALKALINE PHOSPHATASE 71 U/L (46-116); ALT/SGPT 28 U/L (7.0-40); AST/SGOT 19 U/L (<34); BLOOD UREA NITROGEN 20 MG/DL (9-23); CALCIUM LEVEL 8.7 MG/DL (8.5-10.1); CARBON DIOXIDE LEVEL 30 MMOL/L (20-31); CHLORIDE LEVEL 104 MMOL/L (98-107); CHOLESTEROL LEVEL 139 MG/DL (<200); CHOLESTEROL RISK RATIO 2.96 (<5); CREATININE FOR GFR 0.85 MG/DL (0.55-1.30); FOLATE 12.2 NG/ML (>5.4); FREE T4 1.03 NG/DL (0.89-1.76); GLOMERULAR FILTRATION RATE > 60.0 (>51); GLUCOSE, FASTING 103 MG/DL (60-100); HDL CHOLESTEROL 46.9 MG/DL (>40); LDL CHOLESTEROL 52.3 MG/DL (<100); NON-HDL-C 92.1 MG/DL; POTASSIUM SERUM 4.7 MMOL/L (3.5-5.1); SODIUM LEVEL 140 MMOL/L (136-145); THYROID STIMULATING HORMONE 1.677 uIU/ML (0.55-4.78); TOTAL 25(OH) VITAMIN D 57.1 NG/ML (20.0-100.0); TOTAL PROTEIN 6.5 G/DL (5.7-8.2); TRIGLYCERIDES LEVEL 199 MG/DL (<150); VITAMIN B12 LEVEL 638 PG/ML (211-911)
== END ==
LOC: M LABWUC 11:53
PROVIDERS: ATTEND Nurse Practitioner Adult Health
DX: E78.5 Hyperlipidemia, unspecified (principal); E55.9 Vitamin D deficiency, unspecified; D51.9 Vitamin B12 deficiency anemia, unspecified; R73.03 Prediabetes; I10 Essential (primary) hypertension

== ENCOUNTER → 2023-10-29 | Outpatient (CLI) | payer OTHER | LOC: M WHC 16:33 | PROVIDERS: ATTEND Nurse Practitioner Adult Health | DX: Z12.31 Encounter for screening mammogram for malignant neoplasm of breast (principal) ==

== ENCOUNTER → 2025-03-21 | Outpatient (CLI) | payer OTHER ==
[~2025-03-21] MED LIST changes: -AMBI12.52 PO; -BIOT1000 PO; +BIOT10002 PO; +GABA-1172 PO; -GABA-282 PO; +ZOLP12.561 PO
== END ==
LOC: M RAD 16:28
PROVIDERS: ATTEND Nurse Practitioner Adult Health
DX: K59.00 Constipation, unspecified (principal)

== ENCOUNTER → 2025-07-05 | Outpatient (REF) | payer OTHER ==
[~2025-07-05] MED LIST changes: -ZOLP5TAB PO; +ZOLP5TAB9 PO
== END ==
LOC: M LAB REF 16:57
PROVIDERS: ATTEND Nurse Practitioner Adult Health
DX: N89.8 Other specified noninflammatory disorders of vagina (principal)

== ENCOUNTER → 2025-07-31 | Outpatient (CLI) | payer OTHER | LOC: M EKG 16:07 | PROVIDERS: ATTEND Internal Medicine Cardiovascular Disease | DX: E78.5 Hyperlipidemia, unspecified (principal) ==